=== PATIENT | female | born 1950 | race Hispanic/Latino ===

== ENCOUNTER → 2017-10-25 | Outpatient (CLI) | payer MEDICARE ==
[~2017-10-25] MED LIST: ASPIRIN81 MG PO; CALCIUM 600 +1 EAC6 PO; CLARITIN10 M2 PO; EVISTA60 MG PO; LIPITOR40 MG PO; LOSARTAN-HCTZ1 EAC2 PO; TYLENOL EXTRA500 MG PO
--- NOTE | 2017-10-25 14:14 | Diagnostic Imaging Report ---
PROCEDURE:BONE DXA DUAL ENERGY HISTORY: Osteoporosis. COMPARISON: Baseline exam dated 01/11/13. Prior study dated 05/13/16. FINDINGS: Proximal femur bone mineral density (BMD) (g/cm2):0.738 Femur T-score (standard deviation relative to young adult mean BMD): -1.2 Femur Z-score (standard deviation relative to age-matched control group):0.5 Lumbar bone mineral density (BMD) (g/cm2):0.991 Lumbar T-score (standard deviation relative to young adult mean BMD): -0.5 Lumbar Z-score (standard deviation relative to age-matched control group):-0.1 Change since prior exam (%): Femur:-0.9% Spine:-0.1% Change since oldest prior exam (%): Femur:-3.8% Spine:-2.5% IMPRESSION: World Health Organization Classification:Osteopenia of the left hip. Fracture risk is increased. *The Z-score is provided for informational purposes. The T-score is preferable for clinical decisions. When comparing exams, a change of >4% is considered statistically significant. SUGGESTED RECOMMENDATIONS: Normal \T\ Osteopenia:Consideration should be given to use of calcium supplementation, daily multiple vitamins and adequate exercise, as preventive measures against osteoporosis, if clinically indicated. Osteoporosis \T\ Severe Osteoporosis:In addition to the above, consideration should be given to medical therapy against osteoporosis, if clinically indicated. Merly Henry M.D. Dictated by: Merly Henry M.D. on 10/25/2017 at 14:15 Electronically approved by: Merly Henry M.D. on 10/25/2017 at 14:15
== END ==
LOC: MAMMO 13:18
PROVIDERS: ATTEND Obstetrics & Gynecology Obstetrics
DX: Z12.31 Encounter for screening mammogram for malignant neoplasm of breast (principal); Z78.0 Asymptomatic menopausal state
CPT/HCPCS: 77067; 77080

== ENCOUNTER → 2018-12-23 | Outpatient (CLI) | payer MEDICARE ==
--- NOTE | 2019-01-09 08:42 | Diagnostic Imaging Report ---
#[id number] - MGSCRBIL #BILATERAL DIGITAL SCREENING MAMMOGRAM: 12/23/2018 CLINICAL: Routine screening. Comparison is made to exams dated: 10/25/2017 mammogram and 05/13/2016 mammogram - [facility]. Current study contains 4 films. There are scattered fibroglandular elements in both breasts. There are benign calcifications in both breasts. No significant masses, calcifications, or other findings are seen in either breast. IMPRESSION: BENIGN There is no mammographic evidence of malignancy. A 1 year screening mammogram is recommended. The patient will be notified by letter of the results. DAMIAN GAGE M.D. ct/penrad:01/06/2019 12:21:40 Social Insurance Analyst: Cassandra DUQUE)(M), [facility] letter sent: Normal Exam Mammogram BI-RADS: 2 Benign
== END ==
LOC: MAMMO 14:48
PROVIDERS: ATTEND Obstetrics & Gynecology Obstetrics
DX: Z12.31 Encounter for screening mammogram for malignant neoplasm of breast (principal)
CPT/HCPCS: 77067

== ENCOUNTER → 2020-06-07 | Outpatient (CLI) | payer MEDICARE | LOC: MAMMO 09:47 | PROVIDERS: ATTEND Obstetrics & Gynecology Obstetrics | DX: Z12.31 Encounter for screening mammogram for malignant neoplasm of breast (principal); Z13.820 Encounter for screening for osteoporosis | CPT/HCPCS: 77067; 77080 ==